=== PATIENT | male | born 1970 | race Caucasian/White ===

== ENCOUNTER 2018-01-20 04:45 | Emergency (ER) | payer SELFPAY ==
[~2018-01-20] VITALS: Ht 172.7 cm; Wt 63.5 kg
[~2018-01-20 04:45] MED LIST: NAPR550 PO; OXYACE5T PO
[2018-01-20] MEDS ORDERED: Bactrim Ds Tab1 EACH PO (05:10)
== END 2018-01-20 05:18 | disposition home or self-care (01) ==
LOC: ER 04:45
DX: L03.116 Cellulitis of left lower limb (principal); L03.113 Cellulitis of right upper limb; L03.114 Cellulitis of left upper limb; Z79.2 Long term (current) use of antibiotics; F17.210 Nicotine dependence, cigarettes, uncomplicated
CPT/HCPCS: 99283

== ENCOUNTER 2018-05-04 12:59 | Emergency (ER) | payer MEDICAID ==
[~2018-05-04] VITALS: Ht 172.7 cm; Wt 63.5 kg
[~2018-05-04 12:59] MED LIST changes: +Bactrim Ds Tab1 EACH PO
[2018-05-04] MEDS ORDERED: Bactrim Ds Tab1 EACH PO (13:34)
== END 2018-05-04 13:40 | disposition home or self-care (01) ==
LOC: ER 12:59
DX: L03.116 Cellulitis of left lower limb (principal); L03.115 Cellulitis of right lower limb; F17.210 Nicotine dependence, cigarettes, uncomplicated
CPT/HCPCS: 99282

== ENCOUNTER 2019-04-15 16:01 | Emergency (ER) | payer OTHER ==
[~2019-04-15] VITALS: Ht 172.7 cm; Wt 61.2 kg
[2019-04-15] MEDS ORDERED: Keflex500 MG PO (18:08)
[2019-04-15] MEDS ORDERED: Bactrim Ds Tab1 EACH PO (18:08)
== END 2019-04-15 18:17 | disposition home or self-care (01) ==
LOC: ER 16:01
DX: L03.116 Cellulitis of left lower limb (principal); L03.115 Cellulitis of right lower limb; L02.416 Cutaneous abscess of left lower limb; L02.415 Cutaneous abscess of right lower limb; W57.XXXA Bitten or stung by nonvenomous insect and other nonvenomous arthropods, initial encounter; F17.210 Nicotine dependence, cigarettes, uncomplicated
CPT/HCPCS: 99283